=== PATIENT | male | born 1980 | race Caucasian/White ===

== ENCOUNTER 2017-03-01 23:43 | Emergency (ER) | payer OTHER ==
[2017-03-01 23:51] VITALS: RESP 16
--- NOTE | 2017-03-02 00:08 | EDPHY ---
H & P Stated Complaint: forehead lac and l jaw pain , injury while wrestling - Personal History Current Tetanus Diphtheria and Acellular Pertussis (TDAP): Yes Tetanus Vaccine Date: 2008 - Medical/Surgical History Hx Asthma: No Hx Chronic Respiratory Disease: No Hx Diabetes: No Hx Cardiac Disease: No Hx Renal Disease: No Hx Cirrhosis: No Hx Alcoholism: No Hx HIV/AIDS: No Hx Splenectomy or Spleen Trauma: No Other PMH: lap band, seasonal allergies - Social History Smoking Status: Never smoked Time Seen by Provider: 03/02/17 00:01 HPI/ROS: CHIEF COMPLAINT: Forehead laceration HISTORY OF PRESENT ILLNESS: 36-year-old male arrives via taxi after he was wrestling with friends, not assault, impacted his forehead against a piece of wood. Possible brief loss of consciousness. No headache. No nausea or vomiting. Cutting of isolated laceration. . No midline C-spine pain. No visual disturbance. REVIEW OF SYSTEMS: A ten point review of systems was performed and is negative with the exception of the items mentioned in the HPI PAST MEDICAL/SURGICAL HISTORY: no anticoagulant use, no relevant medical/ surgical history SOCIAL HISTORY: Positive alcohol use PHYSICAL EXAM 1) GENERAL: Well-developed, well-nourished, alert and oriented. Appears to be in no acute distress. Answering questions appropriately. 2) HEAD: Normocephalic, 4 cm frontal laceration just left of midline 3) HEENT: Pupils equal, round, reactive to light bilaterally. Negative Horners. Nasopharynx, oropharynx, clear. No deformity or angulation of nose. No septal hematoma. No rhinorrhea. No oral trauma. Ears bilaterally with normal tympanic membranes. No hemotympanum. No fluid or blood in the external auditory canal. No raccoon eyes. No Sharma sign. Teeth are normally aligned with no gross malocclusion, TMJ bilaterally nontender, facial bones nontender including the zygomatic arch, maxilla mandible. 4) NECK: No cervical collar is on. Posterior cervical spine is nontender, no stepoff, no effusion. Full range of motion which does not elicit any midline cervical spine pain, no posterior midline tenderness, no step-off. 5) LUNGS: Breathing comfortably 6) HEART: Regular rate and rhythm, 7) ABDOMEN: No guarding, no rebound, no focal tenderness, no peritoneal signs, no signs of trauma, no ecchymosis 8) MUSCULOSKELETAL: Moving all extremities, no focal areas of tenderness, no obvious trauma. 9) BACK: no visual or palpable abnormality. 10) SKIN: laceration forehead n DIFFERENTIAL DIAGNOSIS: Not necessarily in any particular order, my differential diagnosis includes, but is not limited to, concussion, skull fracture, intraparenchymal contusion, subarachnoid, subdural and epidural hematoma. The patient understands that this diagnosis is provisional and can never be 100% accurate. (Liyah Green) Constitutional: Initial Vital Signs Temperature (C) 37.2 C 03/01/17 23:49 Heart Rate 136 H 03/01/17 23:49 Respiratory Rate 16 03/01/17 23:49 Blood Pressure 127/86 H 03/01/17 23:49 O2 Sat (%) 98 03/01/17 23:49 O2 Delivery Mode Room Air Allergies/Adverse Reactions: Sulfa (Sulfonamide Antibiotics) [Sulfa(Sulfonamide Antibiotics)] Allergy ( Verified 02/25/12 16:11) Home Medications: Medication Instructions Recorded Veramyst 2 sprays NASAL BID PRN 02/25/12 Yudy Allergy 03/01/17 ED Images - Head Head Front/Back: 1 - Laceration Medical Decision Making Procedures: Procedure: Laceration repair. [I was requested by to perform wound closure] I explained the indications, risks and benefits for both laceration repair and anesthetic administration. Verbal consent was obtained from the [patient] [and parent]. The laceration on the [location] was anesthetized using [0.5% bupivicaine] [with][out] [epinephrine] [digital nerve block]. After anesthetic administered the patient was observed for a period of time and had no apparent adverse effects. The wound was cleaned, prepped, draped in normal sterile fashion and explored to its base. No foreign body seen, no foreign bodies palpated. [There were no deep structures involved.] [No tendon injury was identified.] The wound was repaired with [14 simple interrupted 6 0 Prolene suture ]. The wound repair was [simple][complex]. The procedure was performed by [myself]. Patient has been informed that scarring will occur, although efforts have been made to minimize this. (Liyah Green) ED Course/Re-evaluation: 12:07 a.m.: Head CT ordered in this patient for trauma for the following indication:loss of consciousness and intoxicated 1243 am: Patient declines CT. 12:50 a.m.: Re-evaluation, answering questions appropriately. . (Liyah Green) Other Provider: PHYSICIAN DOCUMENTATION: The patient was evaluated and managed by the Physician Fire Observer. My co- signature indicates that I have reviewed this chart and I agree with the findings and plan of care as documented. I am the secondary supervising physician. (Radha Mcgrath) Departure - Departure Disposition: Home, Routine, Self-Care Clinical Impression: Forehead laceration Qualifiers: Encounter type: initial encounter Qualified Code(s): S01.81XA - Laceration without foreign body of other part of head, initial encounter Condition: Good Instructions: Laceration (ED) Additional Instructions: ALTHOUGH THERE IS NO EVIDENCE OF SERIOUS HEAD INJURY AT THIS TIME, DELAYED SIGNS CAN APPEAR 24 TO 48 HOURS AFTER INJURY. WE RECOMMEND THAT YOU DESIGNATE A FRIEND OR FAMILY MEMBER TO OBSERVE YOU OVER THE NEXT FEW DAYS TO ENSURE THAT YOUR CONDITION IS PROGRESSING NORMALLY. PLEASE RETURN TO THE EMERGENCY DEPARTMENT (ED) IMMEDIATELY IF YOU HAVE INCREASED HEADACHE, PERSISTENT HEADACHE , VOMITING, WEAKNESS, CONFUSION OR VISUAL PROBLEMS. WE RECOMMEND THAT YOU DO NOT RESUME CONTACT SPORTS OR ACTIVITIES THAT TAKE COORDINATION OR BALANCE SUCH SKIING OR RIDING A BICYCLE UNTIL CLEARED TO DO SO BY YOUR DOCTOR OR BY A NEUROLOGIST. Referrals: Return, to the ER in 5 days for suture removal [Other] - As per Instructions
[2017-03-02 01:01] VITALS: BP 141/79; PULSE 88; TEMP 98.1; O2SAT 97
== END 2017-03-02 01:02 | disposition home or self-care (01) ==
PROC: 0HQ1XZZ Repair Face Skin, External Approach (ICD-10-PCS; principal; 2017-03-01)
DX: S01.81XA Laceration without foreign body of other part of head, initial encounter (principal); W22.8XXA Striking against or struck by other objects, initial encounter; Y99.8 Other external cause status; Y93.72 Activity, wrestling